=== PATIENT | female | born 1990 | race Caucasian/White ===

== ENCOUNTER 2022-08-09 10:50 | Emergency (ER) | payer OTHER, SELFPAY ==
[2022-08-09 11:02] VITALS: BP 117/73; PULSE 80; RESP 16; TEMP 36.2; O2SAT 97; BMI 28.7
--- NOTE | 2022-08-09 11:06 | ED.GENADULT ---
HPI - General Adult General Chief complaint: Wound/Laceration Stated complaint: Arm lac Time Seen by Provider: 08/09/22 11:05 Source: patient Mode of arrival: ambulatory Limitations: no limitations History of Present Illness HPI narrative: Patient is a 32 year old assigned female at with no reported medical history presenting to the emergency department today with a left forearm laceration. Patient states that yesterday she was cleaning a vase when it broke and cut her left forearm. Patient states that she attempted to clean the area. Patient states that she is up to date on tetanus. Patient denies any numbness, tingling, dizziness, lightheadedness, abdominal pain, nausea, vomiting, fever, chills, blurry vision, double vision, loss of vision, chest pain, difficulty breathing, shortness of breath, back pain, night sweats, pain with urination, increased urinary frequency, increased urinary urgency, blood in her urine or stool, syncope or a near syncopal episode, bowel incontinence, bladder incontinence, bowel retention, bladder retention, or any other complaints at this time. Onset (ago): day(s) (1) Location: left and upper extremity Radiation: non-radiation Severity: mild Severity scale (1-10): 3 Pain Consistency: constant Relieving factors: none Exacerbating factors: none Associated symptoms: denies other symptoms Treatments prior to arrival: other (cleaned and bandaged area) Related Data Previous Rx's Medication Instructions Recorded levofloxacin 750 mg tablet 750 mg PO DAILY 7 days #7 tabs 08/09/22 Allergies Allergy/AdvReac Type Severity Reaction Status Date / Time No Known Allergies Allergy Verified 08/09/22 11:01 Review of Systems Constitutional: Constitutional: Reports no additional constitutional complaints, Denies chills, Denies fever(s) and Denies night sweats Eyes: Eyes: Reports no additional eye complaints, Denies blurry vision, Denies change in vision, Denies diplopia, Denies eye discharge, Denies loss of vision and Denies eye pain ENT: Denies dizziness Cardiovascular: Cardiovascular: Reports no additional cardiovascular complaints, Denies chest pain, Denies lightheadedness, Denies Loss of Consciousness and Denies dyspnea Respiratory: Respiratory: Reports no additional respiratory complaints and Denies dyspnea Gastrointestinal: Gastrointestinal: Reports no additional gastrointestinal complaints, Denies abdominal pain, Denies melena, Denies hematochezia, Denies change in bowel habits and Denies change in stool character Genitourinary: Genitourinary: Denies hematuria, Denies urinary frequency, Denies dysuria, Denies urinary incontinence, Denies urinary hesitancy and Denies urinary urgency Musculoskeletal: Musculoskeletal: Reports no additional musculoskeletal complaints, Denies numbness and Denies tingling Comments: laceration to left forearm Neurologic: Denies dizziness, Denies loss of vision, Denies numbness and Denies tingling Psychiatric: Psychiatric: Reports no additional psychiatric complaints Endocrine: Endocrine: Reports no additional endocrine complaints Hematologic/Lymphatic: Hematologic/Lymphatic: Reports no additional hematologic/lymphatic complaints Allergic/Immunologic: Allergic/Immunologic: Reports no additional allergic/immunologic complaints PMFSH Past Medical History Attestation statement: The following information was validated with the patient. Source: old records reviewed and nursing notes reviewed Social History Social History Advance Directives: No Advance Directives Information Provided: No Physical Exam ED Vital Signs: Vital Signs - 24 hr 08/09/22 11:02 Temperature 97.2 F Pulse Rate 80 Respiratory Rate 16 Blood Pressure 117/73 Pulse Oximetry 97 Oxygen Delivery Method Room Air BMI result Body Mass Index 28.7 Const General: cooperative, no acute distress, alert and awake Nutritional Appearance: well nourished Orientation/consciousness: patient oriented x3 Limitations: no limitations HENMT Head: Yes normal to inspection and Yes atraumatic Ears: hearing grossly normal bilaterally and external ears normal General nose exam: Normal external nose present, no nasal discharge noted and no epistaxis Face and sinus: Yes normal facial exam, No abrasion and No laceration Mouth: Normal oral and palatal mucosa present, no drooling and no muffled voice Eyes General: appearance normal, both eyes and all related structures Periorbital: periorbital findings normal Eyelids: Yes eyelids normal Conjunctivae: conjunctivae normal Pupils: Equal, round and reactive pupils present EOM: EOMs intact bilaterally Neck Neck: Yes normal visual inspection, Yes full ROM and Yes no lymphadenopathy Chest Chest palpation & inspection: normal inspection of the chest Resp Effort & Inspection: normal respiratory effort and able to speak in complete sentences Auscultation: clear to auscultation bilaterally Cardio Rate: regular rate Rhythm: regular rhythm GI Inspection: Yes normal to inspection Palpation (GI): Soft to palpation, not firm, nontender and no guarding Neuro General: patient oriented x3 and moves all extremities Cranial nerves: Yes Equal, round and reactive pupils present Cognition (Neuro): normal cognition Motor exam (neuro): 5/5 motor strength present throughout Sensory Exam: Normal double simultaneous stimulation for sensation Coordination: [id number] test normal Extrem Other: 2cm laceration to the volar left wrist along the ulnar aspect - mild gaping and surrounding erythema + warmth General: Yes full ROM and Yes capillary refill normal Psych Appearance: grossly normal Mental Status: mental status grossly normal Affect: normal affect Attitude: cooperative Thought process: Normal thought process present Thought content: Normal thought content present Insight: Good insight present (Psych) Medications Administered Discontinued Medications Generic Name Dose Route Start Last Admin Trade Name Flaca PRN Reason Stop Dose Admin Levofloxacin 750 mg 08/09/22 12:19 08/09/22 12:28 Levofloxacin 750 Mg Tablet PO 08/09/22 12:20 750 mg ONCE ONE Administration Procedures Laceration Laceration 1: Site: upper extremity Side (If applicable): left Size (cm): 2 Description: linear Depth: simple, single layer Local Anesthetic: lidocaine 1% Amount of anesthesia used (mL): 5 Pre-repair: wound explored, irrigated extensively and deep structures intact Skin layer closed with: other (prolene) Size (cm): 4-0 Number of sutures: 3 Technique: other (loosely approximated wound edges with simple - interrupted suture) Medical Decision Making Medical Decision Making MDM Narrative: Patient is a 32 year old assigned female at with no reported medical history presenting to the emergency department today with a left forearm laceration. Patient's physical exam was showed a 2cm laceration to the volar ulnar aspect of the left wrist with mild gaping, surrounding erythema, and mild warmth. I explained my physical exam findings to the patient. I answered all questions asked by the patient. Patient's wrist laceration was closely approximated, without incident, per procedure note. Patient's wound was obviously infected. Patient was given her first dose of antibiotics in the department. I stressed the importance of the patient NOT soaking the sutured area. I stressed the importance of the patient having her sutures removed in -10 days. I stressed the importance of the patient performing daily wound checks and dressing changes. I stressed the importance of the patient taking her medication as prescribed. I stressed the importance of the patient following up with her primary care provider. I stressed the importance of the patient returning to the emergency department immediately if her symptoms were to worsen or if she were to develop any dizziness, shortness of breath, difficulty breathing, chest pain, blurry vision, loss of vision, nausea, vomiting, abdominal pain, fever, chills, back pain, or any other complaints. Patient verbalized agreement and understanding with this treatment plan and discharge. Differential Diagnosis Differential Diagnoses: The differential diagnosis associated with the presentation includes laceration Discharge Plan Discharge Clinical Impression: Laceration Patient Disposition: Home, Self-Care Instructions: Care For Your Stitches (ED) Additional Instructions: Do NOT soak the affected area. Have the sutures removed in 7-10 days. Take your antibiotics as prescribed. Perform daily wound checks and dressing changes. Follow up with your primary care provider. Return to the emergency department immediately if your symptoms worsen or if you develop any dizziness, shortness of breath, difficulty breathing, chest pain, blurry vision, loss of vision, nausea, vomiting, abdominal pain, fever, chills, back pain, or any other complaints. Prescriptions: New levofloxacin 750 mg tablet 750 mg PO DAILY 7 Days Qty: 7 0RF [place] [facility] [place] [facility] [place] (Call to establish and follow up with a primary care provider. If you already have a primary care provider, please follow up with them. ) [facility] [place] [facility] [place] (Call to establish and follow up with a primary care provider. If you already have a primary care provider, please follow up with them. ) [facility] [place] [facility] [place] [facility] (Call to establish and follow up with a primary care provider. If you already have a primary care provider, please follow up with them. ) Stand Alone Forms: Work/School Release Interventions: ED Discharge Assessment Last Done: 08/09/22 12:31 Discharge Date/Time: 08/09/22 12:32 Print Language: Luxembourgish
[2022-08-09] MEDS: levoFLOXacin 750 MG TABLET PO (12:28)
== END 2022-08-09 12:32 | disposition home or self-care (01) ==
PROVIDERS: Emergency Provider Emergency Medicine Emergency Medical Services
DX: S41.112A Laceration without foreign body of left upper arm, initial encounter (principal); W26.9XXA Contact with unspecified sharp object(s), initial encounter; Y93.9 Activity, unspecified; Y92.9 Unspecified place or not applicable; Y99.9 Unspecified external cause status
CPT/HCPCS: 12001; 96372; 99283; 99284

== ENCOUNTER 2023-03-23 06:04 | Emergency (ER) | payer OTHER, SELFPAY ==
--- NOTE | ~2023-03-23 | XR_ITS ---
EXAMINATION: XR KNEE, LEFT CLINICAL INFORMATION: Pain/edema after fall COMPARISON: None available. TECHNIQUE: Four views of the left knee. FINDINGS: Osseous alignment is anatomic. Joint spaces appear maintained. No acute fracture is seen. There is suggestion of a small joint effusion. XR/XR knee LT 4V IMPRESSION: No acute osseous abnormality of the left knee. Suggestion of a small joint effusion.
[2023-03-23 06:09] VITALS: BP 133/58; PULSE 82; RESP 16; TEMP 36.7; O2SAT 98; BMI 28.9
[2023-03-23 06:34] VITALS: BP 98/69; PULSE 70; RESP 98; TEMP 36.8; O2SAT 96
--- NOTE | 2023-03-23 07:13 | ED.LOWEXIN ---
HPI - Extremity Injury (Lower) General Chief Complaint: Extremity Injury, Lower Stated Complaint: L Knee pain Time Seen by Provider: 03/23/23 06:36 Source: patient, RN notes reviewed and old records reviewed Mode of arrival: ambulatory Limitations: no limitations History of Present Illness HPI Narrative: 32yo F with no significant medical history presenting to the ED with increasing left knee pain, swelling and locking after stepping off her deck 2 days ago. She reports a chronic history of knee locking up but she is able to fix it by extending knee. No trauma to the knee reported. Patient denies fever, chills. N/V, dizziness. She has been alternating Tylenol/Ibuprofen at home as well as icing and elevating the knee with little relief. Related Data Previous Rx's Medication Instructions Recorded levofloxacin 750 mg tablet 750 mg PO DAILY 7 days #7 tabs 08/09/22 Allergies Allergy/AdvReac Type Severity Reaction Status Date / Time No Known Allergies Allergy Verified 08/09/22 11:01 Review of Systems Review of Systems: Constitutional: No Fever, No Chills, No Fatigue, No Malaise ENT/Mouth: No Ear Pain, No Nasal Congestion, No sore throat, No Rhinorrhea, No Swallowing Difficulty Eyes: No Eye Pain, No Swelling, No Redness, No Vision Changes Cardiovascular: No Chest Pain, No SOB Respiratory: No Cough, No Sputum, No Dyspnea Gastrointestinal: No Nausea, No Vomiting, No Abdominal pain, Musculoskeletal: + left knee pain, No Myalgias, + L Knee Joint swelling Skin: +bruising of medial left knee, no rash Neuro: No Weakness, No Numbness, No Paresthesias, No Headache Yes all other systems are reviewed and are negative Constitutional: Constitutional: Reports as per [facility] Past Medical History Attestation statement: The following information was validated with the patient. Source: old records reviewed Social History Social History Alcohol intake: current Alcohol intake frequency: holidays/special occasions only Smoked in Last 30 Days: Yes Substance Use Type: Marijuana Substance Use Frequency: Socially Advance Directives: No Advance Directives Information Provided: No Physical Exam Vital Signs: Vital Signs: Last Vital Signs Temp 98.3 F 03/23/23 06:34 Pulse 70 03/23/23 06:34 Resp 98 H 03/23/23 06:34 BP 98/69 03/23/23 06:34 Pulse Ox 96 03/23/23 06:34 O2 Del Method Room Air 03/23/23 06:34 BMI result Body Mass Index 28.9 Const: General: cooperative, healthy appearing and no acute distress Orientation/consciousness: patient oriented x3 Limitations: no limitations HEENT: Head: Yes normal to inspection and Yes atraumatic Ears: hearing grossly normal bilaterally General nose exam: Normal external nose present Face and sinus: Yes normal facial exam Eyes: General: appearance normal, both eyes and all related structures EOM: EOMs intact bilaterally Neck: Neck: Yes normal visual inspection and Yes no meningeal signs Resp: Effort & Inspection: normal respiratory effort and no respiratory distress Cardio: Rate: regular rate Peripheral pulses: dorsalis pedis present Skin: Rashes: no rashes Wounds: no wounds Neuro: General: patient oriented x3, tone normal and no meningeal signs Cranial nerves: Yes CN's II-XII intact bilaterally Gait exam (Neuro): Normal gait present Extrem: Other: Left Lower Extremity: mild swelling of the left knee with healing medial bruising. Decreased ROM of left knee 2/2 pain, LE strength 5/5. No erythema, rash, or bony abnormalities or crepitus. NV intact distally Course Course Course Narrative: 0757--XR knee LT 4V IMPRESSION: No acute osseous abnormality of the left knee. Suggestion of a small joint effusion. > RAY wrap applied. Will refer to ortho as patient may need MRI to evaluate for tendon or ligament involvement w/chronic knee pain/locking. I did offer patient crutches but she notes she is well enough to ambulate. Instructed patient to continue tylenol/ibuprofen at home and follow with ortho. Patient was instructed to return to ED if symptoms persist, get worse, or she develops fever, chills, N/V. Medications Administered Discontinued Medications Generic Name Dose Route Start Last Admin Trade Name Freq PRN Reason Stop Dose Admin Ketorolac Tromethamine 30 mg 03/23/23 07:13 03/23/23 07:31 Ketorolac Tromethamine 30 Mg/Ml Vial IM 03/23/23 07:14 30 mg ONCE ONE Administration Medical Decision Making Medical Decision Making MDM Narrative: 32yo F with no significant medical history presenting to the ED with increasing left knee pain, swelling and locking after stepping off her deck 2 days ago. On exam vital signs stable, NAD/nontoxic-appearing, left knee swelling noted with diffuse tenderness, limited ROM secondary to pain. No erythema/warmth/crepitus. Concern for fracture vs dislocation vs tendon/ligamental or meniscal injury. Low suspicion for septic joint/arthritis or DVT Plan: X-rays, IM toradol Please refer to course for remaining clinical decision making, interpretation of labs/imaging results, and discussions with consultants and/or family members. Differential Diagnosis Differential Diagnoses: The differential diagnosis associated with the presentation includes As above Admission/Observation Consideration of admission/observation: Escalation of care including admission/observation considered Lab Data MDM Lab Attestation statement: I reviewed the patient's lab results. Independent Interpretation I performed an independent interpretation of an: Plain X-Ray Radiology Impression Discussion of test interpretation with radiology: I have reviewed the radiologist's reading. External Record Review External record reviewed: Inpatient record, Office record, Outpatient record, Prior outpatient labs, Prior outpatient radiology, Primary care record and Outside ED record Tests considered The following testing was considered but not selected: As above Prescription Management I considered prescription management with: Pain Medication Discharge Plan Discharge Clinical Impression: Effusion of knee Patient Disposition: Home, Self-Care Instructions: Swollen Joint (ED) Additional Instructions: Your x-ray shows a small left knee joint effusion Wear Ray wrap for stability/compression and comfort Ice and elevate Continue to take Tylenol /Motrin at home for pain and swelling Follow-up with Orthopedics and your doctor Prescriptions: No Action levofloxacin 750 mg tablet 750 mg PO DAILY 7 Days Qty: 7 0RF Referrals: [facility] [place] [facility] [Provider Group] Physician,Unknown J [Primary Care Provider] - Stand Alone Forms: Work/School Release
[2023-03-23] MEDS: Ketorolac Tromethamine 30 MG/ML VIAL IM (07:31)
== END 2023-03-23 08:02 | disposition home or self-care (01) ==
PROVIDERS: Emergency Provider Emergency Medicine
DX: M25.462 Effusion, left knee (principal)
CPT/HCPCS: 73564; 96372; 99284; J1885

== ENCOUNTER 2023-04-16 11:04 | Outpatient (REF) | payer OTHER, SELFPAY ==
--- NOTE | ~2023-04-16 | XR_ITS ---
EXAMINATION: X-RAY BILATERAL KNEES AP STANDING X-RAY LEFT KNEE [place] CLINICAL INFORMATION: Pain. COMPARISON: Radiograph left knee 03/23/2023. TECHNIQUE: AP bilateral standing view of the knees was obtained. [place] view of the left knee was obtained. FINDINGS: Minimal joint space narrowing in the medial compartment of both knees. No osseous erosions or soft tissue calcifications. No dislocation nor discrete displaced fracture in this limited views. XR/XR knee LT 1V IMPRESSION: Minimal joint space narrowing in the medial compartment of both knees.
--- NOTE | ~2023-04-16 | XR_ITS ---
EXAMINATION: X-RAY BILATERAL KNEES AP STANDING X-RAY LEFT KNEE [place] CLINICAL INFORMATION: Pain. COMPARISON: Radiograph left knee 03/23/2023. TECHNIQUE: AP bilateral standing view of the knees was obtained. [place] view of the left knee was obtained. FINDINGS: Minimal joint space narrowing in the medial compartment of both knees. No osseous erosions or soft tissue calcifications. No dislocation nor discrete displaced fracture in this limited views. XR/XR knee standing BI IMPRESSION: Minimal joint space narrowing in the medial compartment of both knees.
== END 2023-04-16 11:05 | disposition home or self-care (01) ==
LOC: HO.HOSX 11:04
PROVIDERS: Visit Provider Physician Assistant
DX: S83.8X2A Sprain of other specified parts of left knee, initial encounter (principal)
CPT/HCPCS: 73560; 73565; 99202

== ENCOUNTER 2023-04-16 11:04 | Outpatient (AMB) | payer OTHER, SELFPAY ==
--- NOTE | 2023-04-16 11:17 | A.OFFVIS_ITS ---
Intake Vital Signs 04/16/23 11:23 Height 5 ft 2 in Weight 158 lb BMI 28.9 Intake Visit Reasons: [employer]- LT knee Effusion, ER follow up Intake Note: Chen is a 33 year old female who presents today as a new patient for a evaluation for her left knee pain. Patient reports after she stepped off her deck a couple days ago she stated to notice some swelling. She reports a chronic history of knee locking up but she is able to fix it by extending knee. She states when she squats down her knee locks and she need to extend her leg so it can start moving. Pain is on the medical aspect of the knee and it moves to her knee cap per patient. Hx of talking naproxen with no relief. Hx of icing, and lidocaine patches with no relief. Allergies No Known Allergies Allergy (Verified 04/16/23 11:21) HPI [employer]- LT knee Effusion, ER follow up HPI Details 33-year-old female who presents in the [facility] today, as a new patient, for an evaluation of left knee pain. The patient presented to the ED on 03/23/2023 status post edema and locking in the left knee after stepping off her deck 2 days prior on 03/21/2023. X-rays of the left knee were obtained. She was placed in an LAURYN wrap and referred to Orthopedics. The patient reports a chronic history of knee locking, like when she bends down for example. She states she corrects this by extending the knee. She reports the pain is on the medial aspect of the left knee that radiates to the knee cap. Patient has a history of taking naproxen and applying lidocaine patches with no relief. She has also tried icing with no relief. [facility] Social History (Updated 04/16/23 @ 11:24 by Osorio Armstrong) Alcohol intake: current Alcohol intake frequency: holidays/special occasions only Substance Use Type: Marijuana Current occupational status: employed Current occupation: [employer] Review of Systems Const All systems reviewed & are unremarkable except as noted in HPI and below Physical Exam Vital Signs: BMI result Body Mass Index 28.9 Const General: cooperative and no acute distress Orientation/consciousness: patient oriented x3 Resp Effort & Inspection: normal respiratory effort and able to speak in complete sentences Cardio Peripheral pulses: Peripheral pulses 2+ throughout Skin General skin exam: no rashes or lesions noted Neuro General: patient oriented x3 Extrem Other: Left knee: Normal to inspection. No ecchymosis, erythema, or joint effusion. No tenderness to palpation to the lateral joint line. Tenderness to palpation medial joint line. Full knee extension and flexion. Negative Jacob's. Negative anterior drawer. NVI. Assessment & Plan Assessment & Plan (1) Injury of meniscus of left knee: Code(s): S83.8X2A - Sprain of other specified parts of left knee, initial encounter Qualifiers: Encounter type: initial encounter Qualified Code(s): S83.8X2A - Sprain of other specified parts of left knee, initial encounter Plan is a 33-year-old female who presents in the office today, as a new patient, for an evaluation of left knee pain. The patient presented to the ED on 03/23/2023 status post edema and locking in the left knee after stepping off her deck 2 days prior on 03/21/2023. X-rays of the left knee were obtained. She was placed in an LAURYN wrap and referred to Orthopedics. The patient reports a chronic history of knee locking, like when she bends down for example. She states she corrects this by extending the knee. She reports the pain is on the medial aspect of the left knee that radiates to the knee cap. Patient has a history of taking naproxen and applying lidocaine patches with no relief. She has also tried icing with no relief. The patient will be referred for an MRI to further evaluate the integrity of the left knee. Follow up will be in 3 weeks for an MRI review, or sooner if needed. X-rays of the left knee obtained while in the office today and reviewed by me, Divine Singh PA-C, revealed no acute fracture or dislocation. X-rays of the left knee, obtained on 03/23/2023, revealed: No acute osseous abnormality of the left knee. Suggestion of a small joint effusion. Orders: Orders XR knee standing BI Today M25.569 - Pain in unspecified knee XR knee LT 1V Today M25.569 - Pain in unspecified knee MR knee LT wo con Today S83.8X2A - Sprain of other specified parts of left knee, initial encounter Patient Instructions: Scribed for Divine Singh PA-C by Belle Storey nuclear medicine medical director, on 04/16/2023 at 11:08 am, EST. Coding Level of Care Code New Pt Level 4 (08394) Diagnoses Injury of meniscus of left knee, initial encounter S83.8X2A Encounter type: initial encounter
[2023-04-16 11:23] VITALS: BMI 28.9
== END 2023-04-16 11:46 | disposition home or self-care (01) ==
PROVIDERS: Visit Provider Physician Assistant
DX: S83.8X2A Sprain of other specified parts of left knee, initial encounter (principal)
CPT/HCPCS: 99204

== ENCOUNTER 2023-04-23 08:04 | Outpatient (AMB) | payer OTHER, SELFPAY ==
--- NOTE | 2023-04-23 08:05 | A.OFFVIS_ITS ---
Intake Intake Visit Reasons: Ov-Left knee MRI review Intake Note: Chen is a 33 year old female who presents today for a MRI review of her left knee. patient reports her pain is getting worse and she is also having spasms. Allergies No Known Allergies Allergy (Verified 04/23/23 08:08) HPI Ov-Left knee MRI review HPI Details 33-year-old female who presents in the o ffice today for a follow up of left knee pain and review of an MRI. The patient reports the pain is getting worse and she is having spasms. 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 No ecchymosis, erythema, or joint effusion. No tenderness to palpation to the lateral joint line. Tenderness to palpation medial joint line. Full knee extension and flexion. Negative Jacob's. Negative anterior drawer. NVI. Office Procedures Fracture Care Fracture Billing Code: Fracture Billing Code Assessment & Plan Assessment & Plan (1) Left medial tibial plateau fracture: Comment: nondisplaced. Code(s): S82.132A - Displaced fracture of medial condyle of left tibia, initial encounter for closed fracture Qualifiers: Encounter type: subsequent encounter Fracture healing: with routine healing Fracture type: closed Qualified Code(s): S82.132D - Displaced fracture of medial condyle of left tibia, subsequent encounter for closed fracture with routine healing Plan Ms. Francisco is a 33-year-old female who presents in the office today for a follow up of left knee pain and review of an MRI. The patient reports the pain is getting worse and she is having spasms. The patient reports she has crutches at home. She was given a play-maker knee brace, off the shelf, while in the office today locked from 0-40 degrees. I expressed the importance of non-weight bearing to reduce any possible fracture or displacement. The patient is hesitant that she will be able to comply with this due to having children and her job. 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 I expressed the importance of the this and educated her to the best of my abilities. She will work with physical therapy on ROM with no ROM restrictions. Follow up will be in 6 weeks with repeat x-rays, or sooner if needed. She was given a work note stating she must be non-weight bearing with crutches. Allow sedentary work only. MRI of the left knee, obtained at [facility] on 04/20/2023, revealed: 1. Small, coronally oriented fracture of the medial tibial plateau posteriorly with minimal depression of the fracture fragment. 2. Posterior horn medial meniscal tear. 3. Small to moderate knee joint effusion. Orders: Orders PT Evaluation and Treatment Today S82.132A - Displaced fracture of medial condyle of left tibia, initial encounter for closed fracture Patient Instructions: Scribed for Divine Singh PA-C by Belle Storey medical sales specialist, on 04/23/2023 at 8:07 am, EST. Coding Level of Care Code Est Pt Level 4 (92010) Diagnoses Closed fracture of medial portion of left tibial plateau with routine healing, subsequent encounter S82.132D Encounter type: subsequent encounter Fracture healing: with routine healing Fracture type: closed CPT Codes Fracture Care - Fracture Billing Code: Fracture Billing Code ([id number])
== END 2023-04-23 08:43 | disposition home or self-care (01) ==
PROVIDERS: Visit Provider Physician Assistant
DX: S82.132D Displaced fracture of medial condyle of left tibia, subsequent encounter for closed fracture with routine healing (principal); S83.232A Complex tear of medial meniscus, current injury, left knee, initial encounter; M25.462 Effusion, left knee
CPT/HCPCS: 99213

== ENCOUNTER → 2023-04-23 08:04 | Outpatient (BNVA) | payer OTHER, SELFPAY | PROVIDERS: Visit Provider Physician Assistant | DX: S82.132D Displaced fracture of medial condyle of left tibia, subsequent encounter for closed fracture with routine healing (principal) | CPT/HCPCS: 99212 ==

== ENCOUNTER 2023-04-29 14:09 | Outpatient (AMB) | payer OTHER, SELFPAY ==
--- NOTE | 2023-04-29 14:27 | A.OFFVIS_ITS ---
Intake Intake Visit Reasons: Ov-Left knee pain Intake Note: Chen is a 33 year old female who presents today for a follow up of her left knee pain. Given a playmaker brace at her last visit that was locked to allow up to 40 degrees flexion . Patient reports that her knee locks after squatting and when she gets up she has to turn and pop it back in place and has no pain after this has happened many times in the past. On 03/24/23 this happened and she has immediate onset of pain. Her pain is felt on the medial aspect of the knee. She explains this as a pulling pain. Patient reports that she does not know where her fracture is, how long she should be in a brace for, tylenol is not helping her pain and she is unable to help. She was given a note to stay off the knee at work and she has been sitting. Today she discontinued crutches due to the pain in the underarms. She feels that she is having a stabbing pain in the knee. Allergies No Known Allergies Allergy (Verified 04/23/23 08:08) HPI Ov-Left knee pain HPI Details Chen is a 33 year old woman who presents to discuss her left knee pain She complains of medial-sided knee pain with weight bearing activities, worse with twisting, squatting, or using stairs. She says her pain began suddenly on 03/24/23. She says for many years her knee has locked when she performs squats, and she has to rotate the knee to pop it back into place, this is usually without pain. However that time she felt immediate sharp pain and was unable to bear weight on it. She feels frustrated and limited in her activities. She is not sleeping well due to her pain, and has been forcing herself to work every day, though she says she has been sitting all day at work. She is wearing a Playmaker brace and was using crutches, but she discontinued them due to pain in her underarms from use. 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 [employer] Review of Systems Const All systems reviewed & are unremarkable except as noted in HPI and below Physical Exam Const General: no acute distress, alert and awake Orientation/consciousness: patient oriented x3 HEENT Head: Yes normocephalic and Yes atraumatic Eyes EOM: EOMs intact bilaterally Resp Effort & Inspection: normal respiratory effort and able to speak in complete sentences Cardio Jugular venous distension: no JVD Skin General skin exam: turgor normal Rashes: no rashes Neuro General: patient oriented x3 Extrem Other: Left Knee: posteromedial ttp no effusion + medial Steinmen's Psych Appearance: grossly normal Affect: normal affect Attitude: cooperative Results Reviewed Results Reviewed: I personally reviewed relevant MR images small posteromedial tbial plateau fracture- non displaced Small medial meniscus tear Assessment & Plan Assessment & Plan (1) Injury of meniscus of left knee: Code(s): S83.8X2A - Sprain of other specified parts of left knee, initial encounter Qualifiers: Encounter type: initial encounter Qualified Code(s): S83.8X2A - Sprain of other specified parts of left knee, initial encounter Plan: This is a 33 year old woman with a likely meniscus injury, DOI: 03/24/23. She has pain with daily activity, worse with twisting, squatting, or using stairs. She has an MRI performed which indicated a non displaced tibial plateau fracture, but she denies injury and her exam is more indicative of meniscus pathology. She denies any falls or known injury, but has a hx of her knee locking. I ordered a CT scan of her knee to assess for possible fracture, and recommend RICE and NSAIDs. She should remain out of work until her follow-up appointment, hopefully early next week. She was given a note to remain out of work until her next appointment. She will follow up when completed for review (2) Left medial tibial plateau fracture: Comment: nondisplaced. Code(s): S82.132A - Displaced fracture of medial condyle of left tibia, initial encounter for closed fracture Qualifiers: Encounter type: subsequent encounter Fracture healing: with routine healing Fracture type: closed Qualified Code(s): S82.132D - Displaced fracture of medial condyle of left tibia, subsequent encounter for closed fracture with routine healing Plan Scribed for Gutierrez Blakely MD by Yuri Perez medical lab scientist, on 04/29/23 at 2:55 PM, EST. Orders: Orders CT knee LT wo IV con 04/29/23 S82.132A - Displaced fracture of medial condyle of left tibia, initial encounter for closed fracture Coding Level of Care Code Est Pt Level 4 (88832) Diagnoses Injury of meniscus of left knee, initial encounter S83.8X2A Encounter type: initial encounter Closed fracture of medial portion of left tibial plateau with routine healing, subsequent encounter S82.132D Encounter type: subsequent encounter Fracture healing: with routine healing Fracture type: closed
== END 2023-04-29 15:03 | disposition home or self-care (01) ==
PROVIDERS: Visit Provider Orthopaedic Surgery
DX: S83.8X2A Sprain of other specified parts of left knee, initial encounter (principal); S82.132D Displaced fracture of medial condyle of left tibia, subsequent encounter for closed fracture with routine healing; S82.145D Nondisplaced bicondylar fracture of left tibia, subsequent encounter for closed fracture with routine healing
CPT/HCPCS: 99213

== ENCOUNTER → 2023-04-29 14:09 | Outpatient (BNVA) | payer OTHER, SELFPAY | PROVIDERS: Visit Provider Orthopaedic Surgery | DX: S83.8X2D Sprain of other specified parts of left knee, subsequent encounter (principal); S82.132D Displaced fracture of medial condyle of left tibia, subsequent encounter for closed fracture with routine healing | CPT/HCPCS: 99212 ==

== ENCOUNTER 2023-04-30 15:11 | Outpatient (REF) | payer OTHER, SELFPAY ==
--- NOTE | ~2023-04-30 | CT_ITS ---
EXAMINATION: CT KNEE WITHOUT CONTRAST, LEFT CLINICAL INFORMATION: Tibia fracture COMPARISON: Radiographs 04/16/2023 TECHNIQUE: A noncontrast CT of the left knee is performed with sagittal and coronal reformats. This CT examination was performed using dose optimization techniques as appropriate, variously including the following: *Automated exposure control *Adjustment of mA and/or kV according to patient size (this includes techniques or standardized protocols for targeted exams where dose is matched to indication/reason for exam; i.e. extremities or head) *Use of iterative reconstruction technique Dose Length Product: 116 mGycm. FINDINGS: There is an impaction fracture at the posterior aspect of the medial tibia without a 4 mm of impaction/articular offset which is most prominent at the posterior most aspect. A linear cortical fragment is displaced laterally, abutting the medial aspect of the distal PCL. No additional fractures are evident. There is a small joint effusion. There is a small ossification at the lateral aspect of the tibiofibular joint which appears chronic, possibly due to tibiofibular osteoarthritis and/or a remote healed fracture of the fibular head. CT/CT knee LT wo IV con IMPRESSION: There is an impaction fracture at the posterior aspect of the medial tibia with a 4 mm of impaction/articular offset. A linear cortical fragment is displaced laterally, abutting the medial aspect of the distal PCL. Small joint effusion.
== END 2023-04-30 15:12 | disposition home or self-care (01) ==
LOC: HO.CT 15:11
PROVIDERS: Visit Provider Orthopaedic Surgery
DX: S82.132A Displaced fracture of medial condyle of left tibia, initial encounter for closed fracture (principal)
CPT/HCPCS: 73700

== ENCOUNTER 2023-05-03 12:59 | Outpatient (AMB) | payer OTHER, SELFPAY ==
--- NOTE | 2023-05-03 12:58 | MHC.OFFVIS ---
Intake Intake Visit Reasons: ov- CT review left knee Intake Note: Chen is a 33 year old female who presents today VIA telehealth for a CT scan review. Allergies No Known Allergies Allergy (Verified 04/23/23 08:08) HPI ov- CT review left knee HPI Details Chen is a 33 year old woman who presents for a Telehealth CT review of her left knee. She descdribes feeling well and she HAS BEEN WALKING on her knee for weeks. 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 Psych Appearance: grossly normal Affect: normal affect Attitude: cooperative Results Reviewed Results Reviewed: I personally reviewed relevant CT images There is an impaction fracture at the posterior aspect of the medial tibia with a 4 mm of impaction/articular offset. A linear cortical fragment is displaced laterally, abutting the medial aspect of the distal PCL. Small joint effusion. Assessment & Plan Assessment & Plan (1) Left medial tibial plateau fracture: Comment: nondisplaced. Code(s): S82.132A - Displaced fracture of medial condyle of left tibia, initial encounter for closed fracture Qualifiers: Encounter type: subsequent encounter Fracture healing: with routine healing Fracture type: closed Qualified Code(s): S82.132D - Displaced fracture of medial condyle of left tibia, subsequent encounter for closed fracture with routine healing Plan: This is a 33 year old woman with a small posterior medial tibia impaction fracture, DOI: 03/24/23. She has been walking on this and I don't see any reason why she should stop now. I explained this to her and she expressed understanding. (2) Injury of meniscus of left knee: Code(s): S83.8X2A - Sprain of other specified parts of left knee, initial encounter Qualifiers: Encounter type: initial encounter Qualified Code(s): S83.8X2A - Sprain of other specified parts of left knee, initial encounter Plan Scribed for Gutierrez Blakely MD by Yuri Perez medical corps officer, on 05/03/23 at 1:05 PM, EST. Telehealth Telehealth Location of provider rendering services: practice address Location of patient: address on file Patient Identification confirmed using: Name, : Yes Telehealth method: voice only Patient verbally consented to treatment: Yes Patient verbally consented to billing insurance company: Yes Patient informed of any privacy concerns related to visit: Yes Coding Level of Care Code Tele [facility] Pt Level 3 (90310) Diagnoses Closed fracture of medial portion of left tibial plateau with routine healing, subsequent encounter S82.132D Encounter type: subsequent encounter Fracture healing: with routine healing Fracture type: closed Injury of meniscus of left knee, initial encounter S83.8X2A Encounter type: initial encounter
== END 2023-05-03 14:14 | disposition home or self-care (01) ==
LOC: HO.HOS 12:59
PROVIDERS: Visit Provider Orthopaedic Surgery
DX: S82.132D Displaced fracture of medial condyle of left tibia, subsequent encounter for closed fracture with routine healing (principal); S83.8X2D Sprain of other specified parts of left knee, subsequent encounter
CPT/HCPCS: 99213

== ENCOUNTER → 2023-05-03 12:59 | Outpatient (BNVA) | payer OTHER, SELFPAY | PROVIDERS: Visit Provider Orthopaedic Surgery ==

== ENCOUNTER 2023-08-03 06:03 | Emergency (ER) | payer MEDICAID, SELFPAY ==
[2023-08-03 06:24] VITALS: BP 112/40; PULSE 86; RESP 16; TEMP 36.7; O2SAT 98; BMI 27.8
--- NOTE | 2023-08-03 08:32 | ED.DENTAL ---
HPI - Dental/Oral General Chief complaint: Dental/Oral Stated complaint: Dental pain Time Seen by Provider: 08/03/23 08:15 Source: patient Mode of arrival: ambulatory Limitations: no limitations History of Present Illness HPI Narrative: 33-year-old female otherwise healthy came in for evaluation of dental pain. Two days history of right-sided dental pain with right facial swelling that radiates to the right ear, no fever or chills. Patient is awaiting to see her dentist. Related Data Home Medications Medication Instructions Recorded Confirmed ibuprofen 600 mg tablet 600 mg PO Q6H PRN 04/16/23 Previous Rx's Medication Instructions Recorded amoxicillin 500 mg-potassium 1 tab PO Q12H #14 tabs 08/03/23 clavulanate 125 mg tablet (Augmentin) ibuprofen 600 mg tablet 600 mg PO Q8H PRN pain #14 tabs 08/03/23 Allergies Allergy/AdvReac Type Severity Reaction Status Date / Time No Known Allergies Allergy Verified 08/03/23 06:26 Review of Systems Review of Systems: All other systems are reviewed and are negative Constitutional: Reports as per HPI and Reports no additional constitutional complaints Eyes: Reports as per HPI and Reports no additional eye complaints Reports system reviewed and no additional complaints, except as documented Cardiovascular: Reports as per HPI and Reports no additional cardiovascular complaints Respiratory: Reports as per HPI and Reports no additional respiratory complaints Gastrointestinal: Reports as per HPI and Reports no additional gastrointestinal complaints Genitourinary: Reports no additional female genitourinary complaints Musculoskeletal: Reports no additional musculoskeletal complaints Skin/Breast: Reports system reviewed and no additional complaints, except as docu Psychiatric: Reports no additional psychiatric complaints Endocrine: Reports no additional endocrine complaints Hematologic/Lymphatic: Reports no additional hematologic/lymphatic complaints Allergic/Immunologic: Reports no additional allergic/immunologic complaints Reports system reviewed and no additional complaints, except as documented and Reports Abnormal speech present [facility] Social History Social History Alcohol intake: current Alcohol intake frequency: holidays/special occasions only Substance Use Type: Marijuana Advance Directives: No Current occupational status: employed 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 Blood pressure elevated. Heart rate normal. Respiratory rate normal. Temperature normal. Oxygen saturation normal. Appearance: Alert. Oriented X3. No acute distress. mouth exam: A decay in 2nd right upper molar tooth and 2nd right lower molar tooth. Head: Normal external exam. Normocephalic. Atraumatic. No Ross signs noted. No raccoon eyes noted Eyes: PERRLA. EOMI. Conjunctiva and sclera normal. Eyelids normal. ENT: TM's Normal. Pharynx normal. Uvula midline. Moist mucous membranes. No trismus noted. No drooling noted. No muffled voice noted. Neck: Normal inspection. Neck supple. FROM. No adenopathy. Thyroid Normal. No meningeal signs. No neck mass noted. CVS: Normal heart rate and rhythm. Heart sound normal. No murmurs noted. Pulses normal throughout. Respiratory: No respiratory distress. Painless inspiration. Breath sounds normal. No wheezes/rales/rhonchi noted. Chest nontender. No accessory muscle usage noted or decreased air movement noted. Abdomen: Soft and nontender. Bowel sounds normal in all 4 quadrants. No distention noted. No organomegaly noted. No visible injury noted. Back: No CVA tenderness. Full range of motion noted. Skin: Skin warm and dry. Normal skin color. Normal skin turgor. No rashes/lesions/lacerations noted. Extremities: No lower extremity edema. Extremities exhibit normal range of motion. Extremities nontender. Neuro: Oriented X 3. Cranial nerve exam: II-XII are grossly intact No motor deficit. No sensory deficit. Reflexes normal. Course Reevaluation(s) Reevaluation #1: dental pain and gingivitis. Start on Augmentin and NSAIDs for pain. Time: 08:36 Medical Decision Making Differential Diagnosis Differential Diagnoses: The differential diagnosis associated with the presentation includes ( Gingivitis, dental Pain, facial cellulitis.) Admission/Observation Consideration of admission/observation: Escalation of care including admission/observation considered Discharge Plan Discharge Clinical Impression: Toothache, Dental caries Patient Disposition: Home, Self-Care Instructions: Toothache (ED) Additional Instructions: follow-up with your dentist MARIA ELENA Prescriptions: New amoxicillin-pot clavulanate [Augmentin] 500-125 mg tablet 1 tab PO Q12H Qty: 14 0RF ibuprofen 600 mg tablet 600 mg PO Q8H PRN (Reason: pain) Qty: 14 0RF No Action ibuprofen 600 mg tablet 600 mg PO Q6H PRN Stand Alone Forms: Work/School Release
[2023-08-03 08:44] VITALS: BP 106/72; PULSE 75; RESP 20; O2SAT 96
[2023-08-03] MEDS: oxyCODONE HCl Immed Release 5 MG TABLET PO (08:47)
[2023-08-03] MEDS: Amoxicillin/Potassium Clav 500 MG TABLET PO (08:47)
== END 2023-08-03 09:08 | disposition home or self-care (01) ==
PROVIDERS: Emergency Provider Emergency Medicine
DX: K02.9 Dental caries, unspecified (principal); K08.89 Other specified disorders of teeth and supporting structures
CPT/HCPCS: 99283; 99284

== ENCOUNTER 2023-10-05 09:01 | Emergency (ER) | payer OTHER, SELFPAY ==
[2023-10-05 09:14] VITALS: BP 114/64; PULSE 95; RESP 18; TEMP 37.3; O2SAT 99; BMI 29.0
--- NOTE | 2023-10-05 09:18 | ECG_ITS ---
Test Reason : chest pain Blood Pressure : / mmHG Vent. Rate : 088 BPM Atrial Rate : 088 BPM P-R Int : 106 ms QRS Dur : 082 ms QT Int : 374 ms P-R-T Axes : 020 016 037 degrees QTc Int : 452 ms Sinus rhythm with short NC Otherwise normal ECG No previous ECGs available Referred By: Generic ED Physician Electronically Signed By:JENNIFER GUY MD
--- NOTE | 2023-10-05 09:55 | ED.URI ---
HPI - URI/Sore Throat General Chief Complaint: Upper Respiratory Symptoms Stated Complaint: Cough/Vomiting/Headache 14 wks preg Time Seen by Provider: 10/05/23 09:30 Source: patient Mode of arrival: ambulatory Limitations: no limitations History of Present Illness HPI Narrative: 33 y/o 14 weeks gestation female presents with shortness of breath, nasal congestion, productive cough for 3 days and N/V/D with lower abdominal pain for 1 day. Reports that son was recently sick with cold symptoms. On Wednesday, she developed nasal congestion with clear nasal discharge. Yesterday, congestion worsened and she developed body aches, N/V/D. No fevers recorded at home but feels hot and cold. One episode of diarrhea yesterday was watery without blood. Decreased appetite, reporting brown tinge in vomit. Denies chest pain. Reports lower abdominal pain that is stabbing in nature that occurs with vomiting. No abdominal pain at rest. No increased urination, burning with urination. No vaginal bleeding, discharge or cramping. Took robitussin last night for nasal congestion. MD elicited complaint: cough, sore throat, rhinorrhea and nasal congestion Onset (ago): day(s) Consistency: constant Severity: moderate Pain scale (0-10): 6 Exacerbating factors: swallowing and other (vomiting) Associated symptoms: headache, nasal congestion, sore throat, cough, abdominal pain and nausea Treatments prior to arrival: none Related Data Home Medications ?Medication ?Instructions ?Recorded ?Confirmed ibuprofen 600 mg tablet 600 mg PO Q6H PRN 04/16/23 Previous Rx's ?Medication ?Instructions ?Recorded amoxicillin 500 mg-potassium 1 tab PO Q12H #14 tabs 08/03/23 clavulanate 125 mg tablet (Augmentin) ibuprofen 600 mg tablet 600 mg PO Q8H PRN pain #14 tabs 08/03/23 ondansetron 4 mg disintegrating 4 mg PO Q8H PRN nausea and 10/05/23 tablet vomiting #7 tabs Allergies Allergy/AdvReac Type Severity Reaction Status Date / Time No Known Allergies Allergy Verified 10/05/23 09:16 Review of Systems Review of Systems: Yes all other systems are reviewed and are negative [facility] Social History Social History Alcohol intake: current Alcohol intake frequency: holidays/special occasions only Smoked in Last 30 Days: No Use of substances other than those prescribed or required for medical reasons: No Substance Use Type: Marijuana Substance Use Frequency Other:: denies use Advance Directives: No Patient : Yes Current occupational status: employed 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 Oriented X3. Uncomfortable, actively vomiting. Head: normocephalic, atraumatic. ENT: Pharynx normal. No tonsillar swelling or exudate. Neck: Normal inspection. Neck supple. CVS: Normal heart rate and rhythm. Pulses normal. Respiratory: No respiratory distress. Breath sounds normal. Abdomen: Soft, nondistended. Normoactive bowel sounds in all 4 quadrants. Tender to palpation in bilateral lower quandrants, suprapubically. Skin: Skin warm and dry. Normal skin color. Normal skin turgor. No rashes. Extremities: No lower extremity edema. No joint swelling. Neuro/psych: Oriented X 3. Nonfocal Medications Administered Discontinued Medications Generic Name Dose Route Start Last Admin Trade Name Freq PRN Reason Stop Dose Admin Lactated Ringer's 1,000 mls @ 999 mls/hr 10/05/23 10:00 10/05/23 12:05 Lr IV 10/05/23 11:00 Infused .Q1H1M SARAH Infusion Ondansetron HCl 4 mg 10/05/23 09:55 10/05/23 10:49 Ondansetron Hcl 4 Mg/2 Ml Vial IVPUSH 10/05/23 09:56 4 mg ONCE ONE Administration Medical Decision Making Medical Decision Making MDM Narrative: 33 y/o 14 weeks gestation female presents with shortness of breath, nasal congestion, productive cough for 3 days and N/V/D with lower abdominal pain for 1 day. Actively vomiting, ordered IVF and zofran. Ordered ECG, labs to assess for electrolyte abnormality, dehydration. Presentation most likely due to acute viral illness. Labs are reassuring and without significant abnormality. Elevated AST & ALT most likely due to vomiting, acute illness. Ordered COVID/flu/RSV to assess for viral/infectious etiology, positive for influenza B. 11:32 receiving IVF, will PO trial 11:58 tolerating PO trial well, states that her appetite is improved and no longer nauseous. Safe to discharge home with symptomatic management including rest, increased fluids. Will send home with sublingual zofran. Differential Diagnosis Differential Diagnoses: The differential diagnosis associated with the presentation includes influenza, COVID, flu, gastroenteritis, no evidence of spontaneous , appendicitis or cholecystitis Admission/Observation Consideration of admission/observation: Escalation of care including admission/observation considered Lab Data MDM Lab Attestation statement: I reviewed the patient's lab results. Elevated ALT and AST most likely secondary to vomiting, acute illness. 10/05/23 10:00 10/05/23 10:00 Labs: Lab Results 10/05/23 Range/Units 10:00 WBC 6.1 (4.8-10.8) X10*3/uL RBC 3.58 L (4.20-5.50) X10*6/uL Hgb 12.4 (12.0-16.0) g/dl Hct 35.4 L (37.0-47.0) % MCV 98.9 H (80.0-98.0) fL MCH 34.6 H (27.0-33.0) pg MCHC 35.0 (31.0-35.0) g/dl RDW 11.8 (11.0-16.0) % Plt Count 149 L (160-400) X10*3/uL MPV 10.0 (9.4-12.3) fL Immature Gran % (Auto) 1.5 H (0.0-0.4) % Neut % (Auto) 75.6 H (45-73) % Lymph % (Auto) 14.5 L (20-40) % [place] % (Auto) 6.1 (2-11) % Eos % (Auto) 2.1 (0-4) % Baso % (Auto) 0.2 (0-2) % Lymph # (Auto) 0.9 L (1.2-4.9) X10*3/uL [place] # (Auto) 0.4 (0.1-1.2) X10*3/uL Eos # (Auto) 0.1 (0.0-0.4) X10*3/uL Baso # (Auto) 0.0 (0.0-0.2) X10*3/uL Abs Immat Gran (auto) 0.09 H (0.00-0.03) X10*3/uL Absolute Neuts (auto) 4.6 (2.0-8.3) x10*3/uL Absolute Nucleated RBC 0.000 (0.0-0.012) X10*3/uL Nucleated RBC % (auto) 0.0 (0.0-0.2) /100WBC Sodium 139 (135-145) mmol/L Potassium 3.7 (3.3-5.1) mmol/L Chloride 105 (96-108) mmol/L Carbon Dioxide 24 (22-29) mmol/L Anion Gap 14 (12-20) BUN 8 L (9-16) mg/dL Creatinine 0.55 (0.5-1.4) mg/dL Estim Creat Clear Calc 135.2 Estimated GFR > 60 Random Glucose 98 (60-115) mg/dL Calcium 8.5 (8.4-10.2) mg/dL Total Bilirubin 0.2 (0.0-1.0) mg/dL AST 52 H (5-31) U/L ALT 85 H (0-31) U/L Alkaline Phosphatase 62 (39-117) U/L Total Protein 6.6 (6.5-8.0) g/dL Albumin 3.6 (3.5-5.0) g/dL Beta HCG, Quant 53439 mIU/mL Influenza Type A (PCR) NEGATIVE (Negative) Influenza Type B (PCR) POSITIVE A (Negative) RSV RNA Qual (PCR) NEGATIVE (Negative) SARS-CoV-2 RNA (RT-PCR) NEGATIVE (Negative) Independent Interpretation I performed an independent interpretation of an: EKG Interpretation: ECG normal sinus rhythm with ventricular rate of [address] changes, elevations, or depression. Prescription Management I considered prescription management with: Pain Medication and Antibiotic Critical Care Time Critical Care Time Critical Care Time: Yes Total Critical Care Time: 32 Attestation: I have personally provided critical care time exclusive of time spent on separately billable procedures. Time includes review of lab data, radiology results, multiple re-evaluations and reassessments, and monitoring for potential decompensation. Intervention performed as documented. Discharge Plan Discharge Clinical Impression: Influenza Patient Disposition: Home, Self-Care Instructions: Influenza (DC) Additional Instructions: you tested positive for influenza B treatment is rest and supportive care. Make sure to stay hydrated and drink plenty of fluids. Stick to a bland diet where not feeling well. Take the prescribed nausea medication as needed for nausea and vomiting. Follow-up with your OB. If you develop any new or worsening symptoms call 911 or call your doctor right away for further evaluation and treatment. Prescriptions: New ondansetron 4 mg tablet,disintegrating 4 mg PO Q8H PRN (Reason: nausea and vomiting) Qty: 7 0RF No Action amoxicillin-pot clavulanate [Augmentin] 500-125 mg tablet 1 tab PO Q12H Qty: 14 0RF ibuprofen 600 mg tablet 600 mg PO Q8H PRN (Reason: pain) Qty: 14 0RF ibuprofen 600 mg tablet 600 mg PO Q6H PRN Stand Alone Forms: Work/School Release Interventions: ED Discharge Assessment Last Done: 10/05/23 12:41 Discharge Date/Time: 10/05/23 12:42 Print Language: Cam[place]
[2023-10-05 10:04] LABS: MANUAL DIFF FLAG NO
[2023-10-05 10:13] LABS: Basophils Percent Auto 0.2 % (0-2); Eosinophils Absolute Auto 0.1 X10*3/uL (0.0-0.4); Eosinophils Percent Auto 2.1 % (0-4); Hematocrit 35.4 % (37.0-47.0); Hemoglobin 12.4 g/dl (12.0-16.0); Imm Gran Abs Auto 0.09 X10*3/uL (0.00-0.03); Imm Gran Pct Auto 1.5 % (0.0-0.4); Lymphocytes Absolute Auto 0.9 X10*3/uL (1.2-4.9); Lymphocytes Percent Auto 14.5 % (20-40); Mean Corpuscular Hemoglobin 34.6 pg (27.0-33.0); Mean Corpuscular Volume 98.9 fL (80.0-98.0); Monocytes Absolute Auto 0.4 X10*3/uL (0.1-1.2); Monocytes Percent Auto 6.1 % (2-11); Neutrophils Absolute Auto 4.6 x10*3/uL (2.0-8.3); Neutrophils Percent Auto 75.6 % (45-73); Platelet Count 149 X10*3/uL (160-400); Red Blood Count 3.58 X10*6/uL (4.20-5.50); Red Cell Distribution Width 11.8 % (11.0-16.0); White Blood Count 6.1 X10*3/uL (4.8-10.8)
[2023-10-05 10:48] LABS: Alanine Aminotransferase 85 U/L (0-31); Albumin Level 3.6 g/dL (3.5-5.0); Alkaline Phosphatase 62 U/L (39-117); Anion Gap 14 (12-20); Aspartate Amino Transferase 52 U/L (5-31); Bilirubin Total 0.2 mg/dL (0.0-1.0); Blood Urea Nitrogen 8 mg/dL (9-16); Calcium 8.5 mg/dL (8.4-10.2); Carbon Dioxide 24 mmol/L (22-29); Chloride 105 mmol/L (96-108); Creatinine Clr Calc Pharmacy 135.2; Estimated Glomerular Filt Rate > 60; Glucose Random 98 mg/dL (60-115); Potassium 3.7 mmol/L (3.3-5.1); Sodium 139 mmol/L (135-145); Total Protein 6.6 g/dL (6.5-8.0)
[2023-10-05] MEDS: ondansetron HCL 4 MG/2 ML VIAL IVPUSH (10:49)
[2023-10-05 10:56] LABS: Influenza A PCR NEGATIVE (Negative); Influenza B PCR POSITIVE (Negative); Resp Syncy Virus RNA Qual PCR NEGATIVE (Negative); SARS COV2 PCR INHOUSE NEGATIVE (Negative)
[2023-10-05] MEDS: Lactated Ringers 1,000 ML 999 ML IV (10:56)
[2023-10-05 11:59] VITALS: BP 115/58; PULSE 85; RESP 18; TEMP 37.3; O2SAT 99
[2023-10-05 12:34] VITALS: O2SAT 98
[2023-10-05 12:41] VITALS: BP 115/88; PULSE 78; RESP 18; TEMP 37.3; O2SAT 99
== END 2023-10-05 12:42 | disposition home or self-care (01) ==
PROVIDERS: Emergency Provider Emergency Medicine
DX: J10.1 Influenza due to other identified influenza virus with other respiratory manifestations (principal); R07.9 Chest pain, unspecified; R06.02 Shortness of breath; R10.30 Lower abdominal pain, unspecified; R09.81 Nasal congestion; Z79.899 Other long term (current) drug therapy
CPT/HCPCS: 0241U; 80053; 84702; 85025; 93005; 96361; 96374; 99284; 99285; J2405; J7120

== ENCOUNTER → 2023-10-05 09:18 | Outpatient (BNV) | payer OTHER, SELFPAY | PROVIDERS: Emergency Provider Emergency Medicine; Visit Provider Internal Medicine Cardiovascular Disease | DX: R07.9 Chest pain, unspecified (principal) | CPT/HCPCS: 93010 ==